=== PATIENT | male | born 1970 | race American Indian/Alaskan Native ===

== ENCOUNTER 2018-05-27 23:26 | Emergency (ER) | payer OTHER ==
[2018-05-27 23:54] VITALS: BP 167/85; PULSE 85; RESP 18; TEMP 98.9; O2SAT 96
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
--- NOTE | 2018-05-28 19:25 | CARD ---
APPROVED REPORT Date of service: 05/28/2018 EKG Measurement Heart [id number] <Conclusion> Sinus rhythm with occasional premature ventricular complexes Nonspecific T wave abnormality Abnormal ECG
== END 2018-05-28 00:39 | disposition home or self-care (01) ==
LOC: C.ER 23:26
DX: S16.1XXA Strain of muscle, fascia and tendon at neck level, initial encounter (principal); V49.40XA Driver injured in collision with unspecified motor vehicles in traffic accident, initial encounter